=== PATIENT | female | born 1985 | race African-American/Black ===

== ENCOUNTER 2018-03-31 11:23 | Emergency (ER) | payer OTHER ==
[2018-03-31 11:32] VITALS: BP 148/91; PULSE 88; TEMP 98.6; BMI 33.9
--- NOTE | 2018-03-31 12:48 | PDOC ---
History of Present Illness - General Chief Complaint: Alcohol intoxication Stated Complaint: DETOX Time Seen by Provider: 03/31/18 12:03 History Source: Patient Exam Limitations: No Limitations - History of Present Illness Initial Comments: CHIEF COMPLAINT: 32 y/o female here for alcohol detox. HISTORY OF PRESENT ILLNESS: Patient states she started drinking 3 pints of vodka daily on 03/19/18 after many unfortunate circumstances. Her counselor suggested she come to the ER to be sent to detox since she is currently homeless. Her counselor is here with her at bedside. Vital signs on arrival are within normal limits. REVIEW OF SYSTEMS: GENERAL/CONSTITUTIONAL: No fever/chills. No weakness. No weight change. HEAD, EYES, EARS, NOSE AND THROAT: No change in vision. No ear pain or discharge. No sore throat. CARDIOVASCULAR: No chest pain or shortness of breath. RESPIRATORY: No cough, wheezing, or hemoptysis. GASTROINTESTINAL: +abdominal pain and nausea. GENITOURINARY: No dysuria, frequency, or change in urination. MUSCULOSKELETAL: No joint or muscle swelling or pain. No neck or back pain. SKIN: No rash or easy bruising. NEUROLOGIC: No headache, vertigo, loss of consciousness, or loss of sensation. PHYSICAL EXAM: GENERAL: The patient is awake, alert, and fully oriented, in no acute distress. She is well appearing and speaks in full, coherent sentences. HEAD: Normal with no signs of trauma. ENT: Pupils equal, round and reactive to light, extraocular movements intact, sclera anicteric, conjunctiva clear. Neck supple. LUNGS: Clear to auscultation bilaterally. Normal excursion. No respiratory distress or use of accessory muscles. CV: RRR, S1/S2, no MRG. Cap refill < 2 sec. ABDOMEN: Soft, non-distended, non-tender even to deep palpation, no hepatomegaly or splenomegaly, no masses. EXTREMITIES: Normal range of motion, no edema. NEUROLOGICAL: Normal speech, normal gait. CN II-XII grossly intact. No tremors. SKIN: Warm, dry, normal turgor, no rashes or lesions noted. Past History - Past Medical History Allergies/Adverse Reactions: Allergies Allergy/AdvReac Type Severity Reaction Status Date / Time Penicillins Allergy Vomiting Verified 03/31/18 11:28 Home Medications: Ambulatory Orders NK [No Known Home Medication] 03/31/18 Anemia: Yes Asthma: Yes COPD: No Psychiatric Problems: Yes (DEPRESSION & ANXIETY) - Reproductive History (#): 7 Para: 4 Cervical CA: No Dysfunctional Uterine Bleeding: No Ectopic : Yes Endometrial CA: No Polycystic Ovaries: No Tubal Ligation: No - Immunization History Immunization Up to Date: Yes - Suicide/Smoking/Psychosocial Hx Smoking Status: No Smoking History: Never smoked Number of Cigarettes Smoked Daily: 0 Hx Alcohol Use: No Drug/Substance Use Hx: No Substance Use Type: None Hx Substance Use Treatment: No *Physical Exam - Vital Signs Last Vital Signs Temp Pulse Resp BP Pulse Ox 98.6 F 88 18 148/91 98 03/31/18 11:28 03/31/18 11:28 03/31/18 11:28 03/31/18 11:28 03/31/18 11:28 Medical Decision Making - Medical Decision Making A/P: 32 y/o female here for alcohol detox. called [facility] - no female beds. Suggested she call tomorrow morning at 8am. Spoke with the patient. will provide her with the number to [email or web address] Instructed her to call at 8am tomorrow morning. Provided her with a list of shelters she can try to find a place to stay. Instructed her to return to the ER with any concerning symptoms. The patient verbalizes understanding of all instructions, has no further questions and is awaiting discharge. *DC/Admit/Observation/Transfer Diagnosis at time of Disposition: Alcohol dependence Qualifiers: Substance use status: uncomplicated Qualified Code(s): F10.20 - Alcohol dependence, uncomplicated - Discharge Dispostion Disposition: HOME Condition at time of disposition: Good - Referrals Referrals: Bryon Villarreal MD [Primary Care Provider] - - Patient Instructions Printed Discharge Instructions: DI for Alcohol Abuse Additional Instructions: Discharge Instructions: -A list of possible homeless shelters has been provided -Please call the detox facility tomorrow at 8am to see if they have any available beds at [phone] -Please return to the ER with any concerning symptoms - Post Discharge Activity
== END 2018-03-31 12:57 | disposition home or self-care (01) ==
LOC: JERFT 11:23
DX: F10.20 Alcohol dependence, uncomplicated (principal); F41.8 Other specified anxiety disorders; J45.909 Unspecified asthma, uncomplicated
CPT/HCPCS: 99281-25

== ENCOUNTER 2018-04-01 10:31 | Inpatient (IN) | payer OTHER ==
[2018-04-01 12:24] VITALS: BMI 30.3
--- NOTE | 2018-04-01 15:22 | HP ---
CIWA Score - CIWA Score Nausea/Vomitin Muscle Tremors: 3 Anxiety: 3 Agitation: 3 Paroxysmal Sweats: 1-Minimal Palms Moist Orientation: 0-Oriented Tacttile Disturbances: 1-Very Mild Itch/Numbness Auditory Disturbances: 1-Very Mild Visual Disturbances: 0-None Headache: 2-Mild CIWA-Ar Total Score: 16 Admission ROS BHS - HPI Chief Complaint: i need help to stop drinking alcohol Allergies/Adverse Reactions: Allergies Allergy/AdvReac Type Severity Reaction Status Date / Time Penicillins Allergy Difficulty Verified 04/01/18 14:31 Breathing History of Present Illness: this 32 years old female with alcohol dependence,seeking detox,withdrawal symptom,never been in detox before asthma syncope alcohol related anxiety,depression,insomnia non compliance Exam Limitations: No Limitations - Ebola screening Have you traveled outside of the country in the last 21 days: No Have you been sick,other than usual withdrawal symptoms: No - Review of Systems Constitutional: Chills, Loss of Appetite, Malaise, Night Sweats, Changes in sleep, Weakness EENT: reports: Nose Congestion Respiratory: reports: No Symptoms reported Cardiac: reports: No Symptoms Reported GI: reports: Nausea, Vomiting, Abdominal cramping : reports: No Symptoms Reported Musculoskeletal: reports: Muscle Pain Integumentary: reports: Dryness Neuro: reports: Headache, Tremors Endocrine: reports: No Symptoms Reported Hematology: reports: No Symptoms Reported Psychiatric: reports: No Sypmtoms Reported (insomnia), Judgement Intact, Mood/ Affect Appropiate, Orientated x3, Anxious, Depressed Patient History - Patient Medical History Hx Anemia: Yes Hx Asthma: Yes (ON ALBUTEROL) Hx Chronic Obstructive Pulmonary Disease (COPD): No Hx Cancer: No Hx Cardiac Disorders: No Hx Congestive Heart Failure: No Hx Hypertension: No Hx Hypercholesterolemia: No Hx Pacemaker: No HX Cerebrovascular Accident: No Hx Seizures: No Hx Dementia: No Hx Diabetes: No Hx Gastrointestinal Disorders: No Hx Liver Disease: No Hx Genitourinary Disorders: No Hx Sexually Transmitted Disorders: Yes (GONORRHEA AND CHLAMYDIA-TREATED) Hx Renal Disease (ESRD): No Hx Thyroid Disease: No Hx Human Immunodeficiency Virus (HIV): No (last 01/22 negative) Hx Hepatitis C: No Hx Depression: Yes (anxiety) Hx Suicide Attempt: No Hx Bipolar Disorder: No Hx Schizophrenia: No Other Medical History: insomnia,no suicidal,no homicidal - Patient Surgical History Past Surgical History: Yes Hx Neurologic Surgery: No Hx Cataract Extraction: No Hx Cardiac Surgery: No Hx Lung Surgery: No Hx Breast Surgery: No Hx Breast Biopsy: No Hx Abdominal Surgery: No Hx Appendectomy: No Hx Cholecystectomy: No Hx Genitourinary Surgery: No Hx Section: No Hx Orthopedic Surgery: Yes (LEFT FOOT SURGERY 2013) Other Surgical History: FALLOPIAN TUBE REMOVAL -DEC 2017, ECTOPIC RUPTURE 2013 ,abnormal pap smear Anesthesia Reaction: No - PPD History Previous Implant?: Yes Documented Results: Negative w/o proof Implanted On Prior [facility] Admission?: No PPD to be Administered?: Yes - Reproductive History Patient is a Female of Child Bearing Age (11 -55 yrs old): Yes Last Menstrual Period: 03/10/18 Patient : No - Smoking Cessation Smoking history: Never smoked Have you smoked in the past 12 months: No Aproximately how many cigarettes per day: 0 Hx Chewing Tobacco Use: No - Substance & Tx. History Hx Alcohol Use: Yes Hx Substance Use: No Substance Use Type: Alcohol Hx Substance Use Treatment: No - Substances Abused Alcohol Route: Oral Frequency: 3-6 times per week Amount used: 1 liter of Vodka , wine Age of first use: 13 Date of Last Use: 04/01/18 Family Disease History - Family Disease History Family Disease History: Other: Father (alcohol,), Mother (alcohol), Brother (alcohol,) Admission Physical Exam BHS - Vital Signs Vital Signs: Vital Signs - 24 hr 04/01/18 12:22 Temperature 98.6 F Pulse Rate 88 Respiratory 20 Rate Blood Pressure 137/102 - Physical General Appearance: Yes: Moderate Distress, Tremorous, Sweating, Anxious HEENTM: Yes: Normal ENT Inspection, BRIANNA, Pharynx Normal Respiratory: Yes: Within Normal Limits, Lungs Clear, Normal Breath Sounds Neck: Yes: Within Normal Limits Breast: Yes: Breast Exam Deferred Cardiology: Yes: Within Normal Limits, Regular Rhythm, Regular Rate, S1, S2 Abdominal: Yes: Within Normal Limits, Normal Bowel Sounds, Flat, Soft Genitourinary: Yes: Within Normal Limits Back: Yes: Muscle Spasm Musculoskeletal: Yes: Back pain, Muscle Pain Extremities: Yes: Tremors Neurological: Yes: personnel analyst II-XII NML intact, Fully Oriented, Alert, Motor Strength 5/5 Integumentary: Yes: Dry Lymphatic: Yes: Within Normal Limits - Diagnostic (1) Alcohol dependence with uncomplicated withdrawal Current Visit: Yes Status: Acute (2) Syncope Current Visit: Yes Status: Acute (3) Insomnia secondary to depression with anxiety Current Visit: Yes Status: Acute (4) History of ectopic Current Visit: Yes Status: Acute (5) Abnormal Papanicolaou smear of cervix Current Visit: Yes Status: Acute (6) Status post left foot surgery Current Visit: Yes Status: Acute Cleared for Admission [facility] - Detox or Rehab [facility] Level of Care: Medically Managed Detox Regimen/Protocol: Librium [facility] Breath Alcohol Content Breath Alcohol Content: 0 Urine Pregancy Test - Result Urine Test Results: Negative- NO Line Present Urine Drug Screen - Results Drug Screen Negative: Yes
[2018-04-01] MEDS ORDERED: LOPERAMIDE HCL 2 MG CAPSULE PO PRN (18:06)
[2018-04-01] MEDS ORDERED: chlordiazePOXIDE HCL 25 MG CAPSULE PO PRN (18:06)
[2018-04-01] MEDS ORDERED: MAGNESIUM CITRATE 300 ML BOTTLE PO PRN (18:06)
[2018-04-01] MEDS ORDERED: hydrOXYzine PAMOATE 50 MG CAPSULE (FP) PO PRN (18:06)
[2018-04-01] MEDS ORDERED: ACETAMINOPHEN 325 MG TABLET (FP) PO PRN (18:06)
[2018-04-01] MEDS ORDERED: MAGNESIUM HYDROX 2400MG/30ML ORAL SUSPENSION 30 ML CUP PO PRN (18:06)
[2018-04-01] MEDS ORDERED: IBUPROFEN 400 MG TABLET (FP) PO PRN (18:06)
[2018-04-01] MEDS ORDERED: MENTHOL/PHENOL 1 EACH UD MM PRN (18:06)
[2018-04-01] MEDS ORDERED: P-EPHED 60MG/TRIPROLIDI 2.5MG TABLET PO PRN (18:06)
[2018-04-01] MEDS ORDERED: guaiFENesin/D-METHORPHAN HB 10 ML UNIT-DOSE CUPS PO PRN (18:06)
[2018-04-01] MEDS ORDERED: MAG HYDROX/AL HYDROX/SIMETH 30 ML UNIT-DOSE CUP PO PRN (18:06)
[2018-04-01] MEDS ORDERED: chlordiazePOXIDE HCL 25 MG CAPSULE PO ONE (18:06)
[2018-04-01] MEDS: chlordiazePOXIDE HCL 25 MG CAPSULE PO SCH (22:17)
[2018-04-01] MEDS: THIAMINE HCL 100 MG TABLET (FP) PO SCH (22:17)
[2018-04-01] MEDS: MELATONIN 5 MG TABLETS PO PRN (22:17)
[2018-04-01 23:05] LABS: URINE APPEARANCE CLEAR; URINE BILIRUBIN NEGATIVE (<2.0 mg/dL); URINE COLOR YELLOW; URINE GLUCOSE (UA) NEGATIVE (NEGATIVE); URINE KETONE 2+ (NEGATIVE); URINE LEUK ESTERASE NEGATIVE (NEGATIVE); URINE NITRITE NEGATIVE (NEGATIVE); URINE PROTEIN NEGATIVE (NEGATIVE); URINE UROBILINOGEN NEGATIVE mg/dL (0.2-1.0)
[2018-04-01 23:10] LABS: EPI CELLS RARE /HPF (FEW); URINE BACTERIA RARE /hpf (NONE SEEN); URINE MUCUS RARE
[2018-04-02] MEDS: chlordiazePOXIDE HCL 25 MG CAPSULE PO SCH (05:52)
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
[2018-04-02 09:38] LABS: HEMATOCRIT 39.3 % (32.4-45.2); HEMOGLOBIN 12.9 GM/dL (10.7-15.3); MCH 23.2 pg (25.7-33.7); MCHC 32.7 g/dl (32.0-36.0); MEAN CELL VOLUME 70.9 fl (80-96); MEAN PLT VOLUME 8.7 fl (7.5-11.1); PLATELET COUNT 127 K/MM3 (134-434); RBC 5.54 M/mm3 (3.60-5.2); RDW 16.6 % (11.6-15.6); WHITE BLOOD COUNT 3.5 K/mm3 (4.0-10.0)
[2018-04-02 09:41] LABS: CHLORIDE 98 mmol/L (98-107); POTASSIUM 3.2 mmol/L (3.5-5.1); SODIUM 137 mmol/L (136-145)
[2018-04-02 09:56] LABS: ALBUMIN 3.8 g/dl (3.4-5.0); ALK PHOS 57 U/L (45-117); ANION GAP 9 (8-16); BILIRUBIN,TOTAL 0.6 mg/dL (0.2-1.0); BLOOD UREA NITROGEN 7 mg/dL (7-18); CO2 30 mmol/L (21-32); CREATININE 0.8 mg/dL (0.55-1.02); GLUCOSE,RANDOM 125 mg/dL (74-106); SGOT/AST 262 U/L (15-37); SGPT/ALT 136 U/L (12-78); TOT PROT 7.2 g/dl (6.4-8.2)
[2018-04-02] MEDS ORDERED: diazePAM 5 MG TABLET PO ONE (10:15)
[2018-04-02] MEDS: PRENATAL VITAMINS W/ FOLIC ACID TABLET (FP) PO SCH (10:54)
[2018-04-02] MEDS: diazePAM 5 MG TABLET PO SCH ×2 (13:21→22:29)
--- NOTE | 2018-04-02 16:00 | PN ---
[facility] CIWA - CIWA Score Nausea/Vomitin Muscle Tremors: 3 Anxiety: 3 Agitation: 3 Paroxysmal Sweats: 1-Minimal Palms Moist Orientation: 0-Oriented Tacttile Disturbances: 1-Very Mild Itch/Numbness Auditory Disturbances: 1-Very Mild Visual Disturbances: 0-None Headache: 2-Mild CIWA-Ar Total Score: 17 S Progress Note (SOAP) Subjective: alert,irritable,anxious,interrupted sleep,tremor Objective: 04/02/18 15:55 Vital Signs Temperature 98.2 F 04/02/18 14:22 Pulse Rate 109 H 04/02/18 14:22 Respiratory Rate 20 04/02/18 14:22 Blood Pressure 128/80 04/02/18 14:22 O2 Sat by Pulse Oximetry (%) nsr 1st degree av block qt 360/442 no chest pain,no sob,no dizziness Laboratory Last Values WBC 3.5 K/mm3 (4.0-10.0) L D 04/02/18 07:45 RBC 5.54 M/mm3 (3.60-5.2) H D 04/02/18 07:45 Hgb 12.9 GM/dL (10.7-15.3) D 04/02/18 07:45 Hct 39.3 % (32.4-45.2) 04/02/18 07:45 MCV 70.9 fl (80-96) L 04/02/18 07:45 MCH 23.2 pg (25.7-33.7) L 04/02/18 07:45 MCHC 32.7 g/dl (32.0-36.0) 04/02/18 07:45 RDW 16.6 % (11.6-15.6) H 04/02/18 07:45 Plt Count 127 K/MM3 (134-434) L D 04/02/18 07:45 MPV 8.7 fl (7.5-11.1) 04/02/18 07:45 Sodium 137 mmol/L (136-145) 04/02/18 07:45 Potassium 3.2 mmol/L (3.5-5.1) L 04/02/18 07:45 Chloride 98 mmol/L (98-107) 04/02/18 07:45 Carbon Dioxide 30 mmol/L (21-32) 04/02/18 07:45 Anion Gap 9 (8-16) 04/02/18 07:45 BUN 7 mg/dL (7-18) 04/02/18 07:45 Creatinine 0.8 mg/dL (0.55-1.02) 04/02/18 07:45 Creat Clearance w eGFR > 60 (>60) 04/02/18 07:45 Random Glucose 125 mg/dL (74-106) H 04/02/18 07:45 Calcium 9.0 mg/dL (8.5-10.1) 04/02/18 07:45 Total Bilirubin 0.6 mg/dL (0.2-1.0) 04/02/18 07:45 AST 262 U/L (15-37) H 04/02/18 07:45 ALT 136 U/L (12-78) H 04/02/18 07:45 Alkaline Phosphatase 57 U/L (45-117) 04/02/18 07:45 Total Protein 7.2 g/dl (6.4-8.2) 04/02/18 07:45 Albumin 3.8 g/dl (3.4-5.0) 04/02/18 07:45 Urine Color Yellow 04/01/18 22:20 Urine Appearance Clear 04/01/18 22:20 Urine pH 5.0 (5.0-8.0) 04/01/18 22:20 Ur Specific [place] 1.015 (1.001-1.035) 04/01/18 22:20 Urine Protein Negative (NEGATIVE) 04/01/18 22:20 Urine Glucose (UA) Negative (NEGATIVE) 04/01/18 22:20 Urine Ketones 2+ (NEGATIVE) H 04/01/18 22:20 Urine Blood 1+ (NEGATIVE) H 04/01/18 22:20 Urine Nitrite Negative (NEGATIVE) 04/01/18 22:20 Urine Bilirubin Negative (<2.0 mg/dL) 04/01/18 22:20 Urine Urobilinogen Negative mg/dL (0.2-1.0) 04/01/18 22:20 Ur Leukocyte Esterase Negative (NEGATIVE) 04/01/18 22:20 Urine WBC (Auto) 1 /hpf (3-5) 04/01/18 22:20 Urine RBC (Auto) None /hpf (0-3) 04/01/18 22:20 Ur Epithelial Cells Rare /HPF (FEW) 04/01/18 22:20 Urine Bacteria Rare /hpf (NONE SEEN) 04/01/18 22:20 Urine Mucus Rare 04/01/18 22:20 RPR Titer Nonreactive (NONREACTIVE) 04/02/18 07:45 Assessment: 04/02/18 15:58 withdrawal symptom Plan: continue detox,k dur 20 meq po bid,k is 3.2,d/c tylenol for elevation of alt,ast repeat alt,ast,inr in am
[2018-04-02] MEDS ORDERED: POTASSIUM CHLORIDE TABS 20 MEQ TABLET.ER (FP) PO ONE (16:01)
--- NOTE | 2018-04-02 20:42 | EKG ---
Test Reason : Blood Pressure : / mmHG Vent. Rate : 091 BPM Atrial Rate : 091 BPM P-R Int : 222 ms QRS Dur : 080 ms QT Int : 360 ms P-R-T Axes : 067 068 065 degrees QTc Int : 442 ms SINUS RHYTHM WITH 1ST DEGREE A-V BLOCK OTHERWISE NORMAL ECG NO PREVIOUS ECGS AVAILABLE Confirmed by SAHRA JAEGER MD ([id number]) on 04/02/2018 8:41:41 PM Referred By: Oleksandr Encarnacion Confirmed By:SAHRA JAEGER MD
[2018-04-02] MEDS: MIRTAZAPINE 15 MG TABLET (FP) PO SCH (22:29)
[2018-04-02] MEDS: THIAMINE HCL 100 MG TABLET (FP) PO SCH (22:29)
[2018-04-02] MEDS: MELATONIN 5 MG TABLETS PO PRN (22:30)
[2018-04-02] MEDS: POTASSIUM CHLORIDE TABS 20 MEQ TABLET.ER (FP) PO SCH (22:30)
[2018-04-02] MEDS ORDERED: chlordiazePOXIDE HCL 25 MG CAPSULE PO SCH (23:00)
[2018-04-03] MEDS: diazePAM 5 MG TABLET PO SCH ×3 (06:24→22:19)
[2018-04-03 10:40] LABS: ALBUMIN 3.5 g/dl (3.4-5.0); CHLORIDE 104 mmol/L (98-107); POTASSIUM 3.5 mmol/L (3.5-5.1); SODIUM 139 mmol/L (136-145)
[2018-04-03 10:51] LABS: ALK PHOS 51 U/L (45-117); ANION GAP 4 (8-16); BILIRUBIN,TOTAL 0.3 mg/dL (0.2-1.0); BLOOD UREA NITROGEN 9 mg/dL (7-18); CALCIUM 8.7 mg/dL (8.5-10.1); CO2 31 mmol/L (21-32); CREATININE 0.9 mg/dL (0.55-1.02); GLUCOSE,RANDOM 165 mg/dL (74-106); SGOT/AST 111 U/L (15-37); SGPT/ALT 128 U/L (12-78); TOT PROT 6.5 g/dl (6.4-8.2)
[2018-04-03] MEDS: PRENATAL VITAMINS W/ FOLIC ACID TABLET (FP) PO SCH (10:51)
[2018-04-03] MEDS: POTASSIUM CHLORIDE TABS 20 MEQ TABLET.ER (FP) PO SCH ×2 (10:51→22:19)
[2018-04-03 11:06] LABS: INR 0.96 (0.82-1.09); PROTHROMBIN TIME (PATIENT) 10.8 SEC (9.7-13.0)
--- NOTE | 2018-04-03 14:00 | PN ---
S CIWA - CIWA Score Nausea/Vomitin Muscle Tremors: 3 Anxiety: 2 Agitation: 2 Paroxysmal Sweats: 1-Minimal Palms Moist Orientation: 0-Oriented Tacttile Disturbances: 1-Very Mild Itch/Numbness Auditory Disturbances: 1-Very Mild Visual Disturbances: 0-None Headache: 2-Mild CIWA-Ar Total Score: 15 BHS Progress Note (SOAP) Subjective: ALERT,IRRITABLE,ANXIOUS,INTERRUPTED SLEEP ,TREMOR Objective: 04/03/18 13:59 Vital Signs Temperature 97.7 F 04/03/18 09:38 Pulse Rate 88 04/03/18 09:38 Respiratory Rate 18 04/03/18 09:38 Blood Pressure 114/55 04/03/18 09:38 O2 Sat by Pulse Oximetry (%) Assessment: 04/03/18 13:59 WITHDRAWAL SYMPTOM Plan: CONTINUE DETOX,ON K REPLACEMENT
[2018-04-03] MEDS: diazePAM 5 MG TABLET PO PRN (20:01)
[2018-04-03] MEDS: MIRTAZAPINE 15 MG TABLET (FP) PO SCH (22:19)
[2018-04-03] MEDS: THIAMINE HCL 100 MG TABLET (FP) PO SCH (22:19)
[2018-04-03] MEDS ORDERED: chlordiazePOXIDE 5 MG CAPSULE PO SCH (23:00)
[2018-04-04] MEDS: POTASSIUM CHLORIDE TABS 20 MEQ TABLET.ER (FP) PO SCH (10:06)
[2018-04-04] MEDS: diazePAM 5 MG TABLET PO SCH ×2 (10:06→22:17)
[2018-04-04] MEDS: PRENATAL VITAMINS W/ FOLIC ACID TABLET (FP) PO SCH (10:06)
--- NOTE | 2018-04-04 12:08 | PN ---
BHS Progress Note (SOAP) Subjective: feeling better less sweat no tremor slept throughout the night Objective: 04/04/18 12:06 Vital Signs Temperature 97.9 F 04/04/18 11:08 Pulse Rate 113 H 04/04/18 11:08 Respiratory Rate 18 04/04/18 11:08 Blood Pressure 130/78 04/04/18 11:08 O2 Sat by Pulse Oximetry (%) Laboratory Last Values WBC 3.5 K/mm3 (4.0-10.0) L D 04/02/18 07:45 RBC 5.54 M/mm3 (3.60-5.2) H D 04/02/18 07:45 Hgb 12.9 GM/dL (10.7-15.3) D 04/02/18 07:45 Hct 39.3 % (32.4-45.2) 04/02/18 07:45 MCV 70.9 fl (80-96) L 04/02/18 07:45 MCH 23.2 pg (25.7-33.7) L 04/02/18 07:45 MCHC 32.7 g/dl (32.0-36.0) 04/02/18 07:45 RDW 16.6 % (11.6-15.6) H 04/02/18 07:45 Plt Count 127 K/MM3 (134-434) L D 04/02/18 07:45 MPV 8.7 fl (7.5-11.1) 04/02/18 07:45 PT with INR 10.80 SEC (9.7-13.0) 04/03/18 07:55 INR 0.96 (0.82-1.09) 04/03/18 07:55 Sodium 139 mmol/L (136-145) 04/03/18 07:55 Potassium 3.5 mmol/L (3.5-5.1) 04/03/18 07:55 Chloride 104 mmol/L (98-107) 04/03/18 07:55 Carbon Dioxide 31 mmol/L (21-32) 04/03/18 07:55 Anion Gap 4 (8-16) L 04/03/18 07:55 BUN 9 mg/dL (7-18) 04/03/18 07:55 Creatinine 0.9 mg/dL (0.55-1.02) 04/03/18 07:55 Creat Clearance w eGFR > 60 (>60) 04/03/18 07:55 Random Glucose 165 mg/dL (74-106) H 04/03/18 07:55 Calcium 8.7 mg/dL (8.5-10.1) 04/03/18 07:55 Total Bilirubin 0.3 mg/dL (0.2-1.0) D 04/03/18 07:55 AST 111 U/L (15-37) H 04/03/18 07:55 ALT 128 U/L (12-78) H 04/03/18 07:55 Alkaline Phosphatase 51 U/L (45-117) 04/03/18 07:55 Total Protein 6.5 g/dl (6.4-8.2) 04/03/18 07:55 Albumin 3.5 g/dl (3.4-5.0) 04/03/18 07:55 Urine Color Yellow 04/01/18 22:20 Urine Appearance Clear 04/01/18 22:20 Urine pH 5.0 (5.0-8.0) 04/01/18 22:20 Ur Specific [place] 1.015 (1.001-1.035) 04/01/18 22:20 Urine Protein Negative (NEGATIVE) 04/01/18 22:20 Urine Glucose (UA) Negative (NEGATIVE) 04/01/18 22:20 Urine Ketones 2+ (NEGATIVE) H 04/01/18 22:20 Urine Blood 1+ (NEGATIVE) H 04/01/18 22:20 Urine Nitrite Negative (NEGATIVE) 04/01/18 22:20 Urine Bilirubin Negative (<2.0 mg/dL) 04/01/18 22:20 Urine Urobilinogen Negative mg/dL (0.2-1.0) 04/01/18 22:20 Ur Leukocyte Esterase Negative (NEGATIVE) 04/01/18 22:20 Urine WBC (Auto) 1 /hpf (3-5) 04/01/18 22:20 Urine RBC (Auto) None /hpf (0-3) 04/01/18 22:20 Ur Epithelial Cells Rare /HPF (FEW) 04/01/18 22:20 Urine Bacteria Rare /hpf (NONE SEEN) 04/01/18 22:20 Urine Mucus Rare 04/01/18 22:20 RPR Titer Nonreactive (NONREACTIVE) 04/02/18 07:45 lab noted Assessment: 04/04/18 12:07 mild withdrawal sx Plan: medically supervised detox
[2018-04-04] MEDS: diazePAM 5 MG TABLET PO PRN (16:43)
[2018-04-04] MEDS ORDERED: POTASSIUM CHLORIDE TABS 20 MEQ TABLET.ER (FP) PO SCH (22:00)
[2018-04-04] MEDS: MIRTAZAPINE 15 MG TABLET (FP) PO SCH (22:18)
[2018-04-04] MEDS: THIAMINE HCL 100 MG TABLET (FP) PO SCH (22:18)
[2018-04-04] MEDS ORDERED: chlordiazePOXIDE HCL 10 MG CAPSULE PO SCH (23:00)
--- NOTE | 2018-04-05 08:54 | DS ---
[facility] Detox Discharge Summary Admission Date: 04/01/18 Discharge Date: 04/05/18 - History Present History: Alcohol Dependence Additional Comments: 33 years old female admitted 04/01/18 for alcohol withdrawal sx completed alcohol detox regimen tolerated well denies alcohol withdrawal sx alert oriented x 3 no acute distress aftercare [facility] patient wants to maintenance sober through recovery process and works closely with mental health provider at the [facility] - Physical Exam Results Vital Signs: Vital Signs Temperature 97.9 F 04/05/18 08:09 Pulse Rate 80 04/05/18 08:09 Respiratory Rate 18 04/05/18 08:09 Blood Pressure 114/73 04/05/18 08:09 O2 Sat by Pulse Oximetry (%) Pertinent Admission Physical Exam Findings: withdrawal sx Vital Signs Temperature 97.9 F 04/05/18 08:09 Pulse Rate 80 04/05/18 08:09 Respiratory Rate 18 04/05/18 08:09 Blood Pressure 114/73 04/05/18 08:09 O2 Sat by Pulse Oximetry (%) Laboratory Last Values WBC 3.5 K/mm3 (4.0-10.0) L D 04/02/18 07:45 RBC 5.54 M/mm3 (3.60-5.2) H D 04/02/18 07:45 Hgb 12.9 GM/dL (10.7-15.3) D 04/02/18 07:45 Hct 39.3 % (32.4-45.2) 04/02/18 07:45 MCV 70.9 fl (80-96) L 04/02/18 07:45 MCH 23.2 pg (25.7-33.7) L 04/02/18 07:45 MCHC 32.7 g/dl (32.0-36.0) 04/02/18 07:45 RDW 16.6 % (11.6-15.6) H 04/02/18 07:45 Plt Count 127 K/MM3 (134-434) L D 04/02/18 07:45 MPV 8.7 fl (7.5-11.1) 04/02/18 07:45 PT with INR 10.80 SEC (9.7-13.0) 04/03/18 07:55 INR 0.96 (0.82-1.09) 04/03/18 07:55 Sodium 139 mmol/L (136-145) 04/03/18 07:55 Potassium 3.5 mmol/L (3.5-5.1) 04/03/18 07:55 Chloride 104 mmol/L (98-107) 04/03/18 07:55 Carbon Dioxide 31 mmol/L (21-32) 04/03/18 07:55 Anion Gap 4 (8-16) L 04/03/18 07:55 BUN 9 mg/dL (7-18) 04/03/18 07:55 Creatinine 0.9 mg/dL (0.55-1.02) 04/03/18 07:55 Creat Clearance w eGFR > 60 (>60) 04/03/18 07:55 Random Glucose 165 mg/dL (74-106) H 04/03/18 07:55 Calcium 8.7 mg/dL (8.5-10.1) 04/03/18 07:55 Total Bilirubin 0.3 mg/dL (0.2-1.0) D 04/03/18 07:55 AST 111 U/L (15-37) H 04/03/18 07:55 ALT 128 U/L (12-78) H 04/03/18 07:55 Alkaline Phosphatase 51 U/L (45-117) 04/03/18 07:55 Total Protein 6.5 g/dl (6.4-8.2) 04/03/18 07:55 Albumin 3.5 g/dl (3.4-5.0) 04/03/18 07:55 Urine Color Yellow 04/01/18 22:20 Urine Appearance Clear 04/01/18 22:20 Urine pH 5.0 (5.0-8.0) 04/01/18 22:20 Ur Specific [place] 1.015 (1.001-1.035) 04/01/18 22:20 Urine Protein Negative (NEGATIVE) 04/01/18 22:20 Urine Glucose (UA) Negative (NEGATIVE) 04/01/18 22:20 Urine Ketones 2+ (NEGATIVE) H 04/01/18 22:20 Urine Blood 1+ (NEGATIVE) H 04/01/18 22:20 Urine Nitrite Negative (NEGATIVE) 04/01/18 22:20 Urine Bilirubin Negative (<2.0 mg/dL) 04/01/18 22:20 Urine Urobilinogen Negative mg/dL (0.2-1.0) 04/01/18 22:20 Ur Leukocyte Esterase Negative (NEGATIVE) 04/01/18 22:20 Urine WBC (Auto) 1 /hpf (3-5) 04/01/18 22:20 Urine RBC (Auto) None /hpf (0-3) 04/01/18 22:20 Ur Epithelial Cells Rare /HPF (FEW) 04/01/18 22:20 Urine Bacteria Rare /hpf (NONE SEEN) 04/01/18 22:20 Urine Mucus Rare 04/01/18 22:20 RPR Titer Nonreactive (NONREACTIVE) 04/02/18 07:45 lab noted - Treatment Hospital Course: Detox Protocol Followed, Detoxed Safely, Responded well, Discharged Condition Good, Rehab Referral Accepted Patient has Accepted a Rehab Referral to: [facility] - Medication Discharge Medications: Ambulatory Orders Bupropion HCl [Wellbutrin Xl -] 150 mg PO DAILY #30 tab.sr.24h 04/02/18 Mirtazapine [Remeron -] 15 mg PO HS #30 tablet 04/02/18 Albuterol Sulfate Inhaler - [Ventolin HFA Inhaler -] 1 - 2 inh PO Q4H #1 inhaler 04/04/18 - Diagnosis (1) Alcohol dependence with uncomplicated withdrawal Current Visit: Yes Status: Acute (2) PTSD (post-traumatic stress disorder) Current Visit: Yes Status: Suspected - AMA Did Patient Leave Against Medical Advice: No
[2018-04-05] MEDS: PRENATAL VITAMINS W/ FOLIC ACID TABLET (FP) PO SCH (09:26)
[2018-04-05] MEDS: diazePAM 5 MG TABLET PO SCH (09:26)
[2018-04-05 10:17] VITALS: BP 143/88; PULSE 101; TEMP 97.7
[2018-04-06] MEDS ORDERED: diazePAM 5 MG TABLET PO SCH (10:00)
== END 2018-04-05 10:00 | disposition home or self-care (01) | DRG 775 ==
LOC: YASAS 10:31 → Y6N 15:12
PROVIDERS: ADMIT Surgery; ATTEND Surgery
PROC: HZ2ZZZZ Detoxification Services for Substance Abuse Treatment (ICD-10-PCS; principal; 2018-04-01)
DX: F10.230 Alcohol dependence with withdrawal, uncomplicated (principal); F51.05 Insomnia due to other mental disorder; F33.1 Major depressive disorder, recurrent, moderate; E87.6 Hypokalemia; R55 Syncope and collapse; R87.619 Unspecified abnormal cytological findings in specimens from cervix uteri; Z87.59 Personal history of other complications of pregnancy, childbirth and the puerperium; Z98.890 Other specified postprocedural states; J45.909 Unspecified asthma, uncomplicated; Z86.19 Personal history of other infectious and parasitic diseases
CPT/HCPCS: 36415; 80053; 81003; 81015; 85027; 85610; 86593; 93005; 93010